=== PATIENT | female | born 1950 | race African-American/Black ===

== ENCOUNTER → 2019-02-19 | Day surgery (SDC) | payer MEDICARE ==
[~2019-02-19] MED LIST: BENZOCAINE ONE 20% MUCOSAL SPRAY.; CETI10CA PO; CLON0.3T PO; DABI150C PO; IV RINGERS,LACTATED 1000ML 1,000 ML IV SCH; LIDOCAINE 2% TOPICAL JELLY 30GM TUBE. TP ONE; LIDOCAINE 2% VISCOUS 15 ML SOLUTION. ONE; LISI10TA2 PO; PANT20TA2 PO; PREG150C PO; PROPOFOL 50 ML IV ONE; ZOLP10TA PO
[2019-02-19 16:50] VITALS: BP 185/92
--- NOTE | 2019-02-19 17:31 | CARD ---
MR#: [id number] Date of Study: 02/19/2019 Ordering Physician: ANA ELLIOTT, Referring Physician: ANA ELLIOTT Tech: Bella Perez RDCS APPROVED REPORT EXAM: Transesophageal echocardiogram with color flow Doppler. INDICATION Atrial Fibrillation Reason For Test : Rule out cardiac source of emboli. PROCEDURE After obtaining informed consent, patient underwent transesophageal echo in the PACU. Type of Sedation : General Anesthesia Sedation was administered by Antwon Javier CRNA. Sedation was achieved with Propofol 180 mg intravenously. Transesophageal probe was inserted and advanced into esophagus by Ana Elliott MD. The MATTEO was performed without complications. Throughout the procedure, the blood pressure, pulse oximetry, cardiac rhythm, and rate were monitored . The patient tolerated the procedure without adverse effects. Recovery from general anesthesia was une ventful and vital signs were stable. LEFT VENTRICLE The left ventricle is normal size. The left ventricular systolic function is normal and the ejection fraction is within normal range. The Ejection Fraction is 55-60%. There is normal LV segmental wall m otion. No left ventricle thrombus noted on this study. RIGHT VENTRICLE The right ventricle is normal size. There is normal right ventricular wall thickness. The right ventr icular systolic function is normal. ATRIA The left atrium size is normal. The right atrium size is normal. The interatrial septum is intact wit h no evidence for an atrial septal defect or patent foramen ovale as noted on 2-D or Doppler imaging. There is no thrombus noted in the left atrial appendage. AORTIC VALVE The aortic valve is calcified but opens well. Doppler and Color Flow revealed trace to mild aortic re gurgitation. There is no significant aortic valvular stenosis. MITRAL VALVE The mitral valve is calcified but opens well. There is no evidence of mitral valve prolapse. There is no mitral valve stenosis. Doppler and Color-flow revealed mild mitral regurgitation. TRICUSPID VALVE The tricuspid valve is normal in structure and function. Doppler and Color Flow revealed mild tricusp id regurgitation. There is no tricuspid valve stenosis. PULMONIC VALVE The pulmonary valve is normal in structure and function. Doppler and Color Flow revealed trace pulmon ic valvular regurgitation. There is no pulmonic valvular stenosis. GREAT VESSELS The aortic root is normal in size. The ascending aorta is mildly dilated at 3.4 cm. The IVC is normal in size and collapses >50% with inspiration. Critical Notification Critical Value: No <Conclusion> The left ventricular systolic function is normal and the ejection fraction is within normal range. Th e Ejection Fraction is 55-60%. There is normal LV segmental wall motion. There is no thrombus noted in the left atrial appendage. Signed by : Ana Elliott, Electronically Approved : 02/19/2019 17:30:19
== END ==
LOC: SURG 14:04
PROVIDERS: ATTEND Internal Medicine Cardiovascular Disease
DX: I48.91 Unspecified atrial fibrillation (principal); I08.3 Combined rheumatic disorders of mitral, aortic and tricuspid valves
CPT/HCPCS: 93312; 93320; 93325; J2704

== ENCOUNTER → 2020-04-08 | Outpatient (CLI) | payer OTHER, MEDICAID ==
[2019-02-19 16:50] VITALS: BP 185/92
[~2020-04-08] MED LIST changes: -BENZOCAINE ONE 20% MUCOSAL SPRAY.; -IV RINGERS,LACTATED 1000ML 1,000 ML IV SCH; -LIDOCAINE 2% TOPICAL JELLY 30GM TUBE. TP ONE; -LIDOCAINE 2% VISCOUS 15 ML SOLUTION. ONE; -PROPOFOL 50 ML IV ONE
--- NOTE | 2020-04-08 16:06 | CARD ---
MR#: [id number] Date of Study: 04/08/2020 Ordering Physician: LOY ESPITIA, Referring Physician: LOY ESPITIA, Tech: Jacquie Grullon APPROVED REPORT EXAM: Two-dimensional and M-mode echocardiogram with Doppler and color Doppler. Other Information Quality : AverageHR: 55bpm INDICATION Atrial Fibrillation RISK FACTORS Hypertension 2D DIMENSIONS RVDd3.3 (2.9-3.5cm)Left Atrium(2D)3.9 (1.6-4.0cm) IVSd1.0 (0.7-1.1cm)Aortic Root(2D)3.0 (2.0-3.7cm) LVDd4.8 (3.9-5.9cm)LVOT Diameter2.0 (1.8-2.4cm) PWd0.9 (0.7-1.1cm)LVDs2.8 (2.5-4.0cm) FS (%) 43.1 %SV81.0 ml LVEF(%)74.1 (>50%) Aortic Valve AoV Peak Max.146.0cm/sAoV VTI34.3cm AO Peak GR.8.5mmHgLVOT Peak Max.102.6cm/s AO Mean GR.5mmHgAVA (VMAX)2.31cm2 Mitral Valve MV E Pmahuael43.2cm/sMV E Peak Gr.4mmHg MV DECEL [id number] A Xaewwjzp21.5cm/s MV E Mean Gr.1mmHgE/A Ratio1.4 Pulmonary Valve PV Peak Upiyggtq44.0cm/s Tricuspid Valve TR P. Ljkjpcmk803ji/sRAP KAARZAPZ9alKu TR Peak Gr.31ymYuBYDI88qpHs Pulmonary Vein S1 Ebosrqry63.8cm/sD2 Ecmnbaxh60.3cm/s PVa ostfhtga806pcjk LEFT VENTRICLE The left ventricle is normal size. There is normal left ventricular wall thickness. The left ventricu lar systolic function is normal and the ejection fraction is within normal range. The Ejection Fracti on is 50-55%. There is normal LV segmental wall motion. Transmitral Doppler flow pattern is Grade II- pseudonormal filling dynamics. RIGHT VENTRICLE The right ventricle is normal size. There is normal right ventricular wall thickness. The right ventr icular systolic function is normal. ATRIA The left atrium size is normal. The right atrium size is normal. The interatrial septum is intact wit h no evidence for an atrial septal defect or patent foramen ovale as noted on 2-D or Doppler imaging. AORTIC VALVE The aortic valve is calcified but opens well. Doppler and Color Flow revealed no significant aortic r egurgitation. There is no significant aortic valvular stenosis. Calculated aortic valve area is 2.5 c m2 with maximum pressure gradient of 9 mmHg and mean pressure gradient of 5 mmHg. MITRAL VALVE The mitral valve is normal in structure and function. There is no evidence of mitral valve prolapse. There is no mitral valve stenosis. Doppler and Color-flow revealed trace mitral regurgitation. TRICUSPID VALVE The tricuspid valve is normal in structure and function. Doppler and Color Flow revealed trace tricus pid regurgitation with an estimated PAP of 45 mmHg. There is no tricuspid valve stenosis. PULMONIC VALVE The pulmonic valve is not well visualized. Doppler and Color Flow revealed trace pulmonic valvular re gurgitation. There is no pulmonic valvular stenosis. GREAT VESSELS The aortic root is normal in size. The ascending aorta is borderline dilated. The IVC is normal in si ze and collapses >50% with inspiration. PERICARDIAL EFFUSION There is no evidence of significant pericardial effusion. Critical Notification Critical Value: No <Conclusion> The left ventricular systolic function is normal and the ejection fraction is within normal range. Th e Ejection Fraction is 50-55%. There is normal LV segmental wall motion. Signed by : Loy Espitia, Electronically Approved : 04/08/2020 16:05:47
== END | disposition home or self-care (01) ==
LOC: ECHO 11:19
PROVIDERS: ATTEND Internal Medicine Cardiovascular Disease
DX: I35.1 Nonrheumatic aortic (valve) insufficiency (principal); I48.91 Unspecified atrial fibrillation
CPT/HCPCS: 93306

== ENCOUNTER → 2021-09-15 | Outpatient (CLI) | payer OTHER ==
[2019-02-19 16:50] VITALS: BP 185/92
[~2021-09-15] MED LIST changes: +LISI10TA16 PO; -LISI10TA2 PO; +REGADENOSON 0.4 MG/5 ML DISP.SYRIN. IV ONE
--- NOTE | 2021-09-15 15:29 | RAD ---
MR#: [id number] Date of Study: 09/15/2021 Ordering Physician: ANA ESPITIA, Referring Physician: ALFRED SALCEDO Tech: RAJIV Sherman APPROVED REPORT Test Type: Pharmacological Stress Nurse/Tech: Es Manzano RN Test Indications: A-fib Cardiac History: Hypertension Medications: See Electronic Medical Record Medical History: See Electronic Medical Record Resting ECG: SR Resting Heart Rate: 61 bpm Resting Blood Pressure: 128/60mmHg Pretest Chest Pain: No chest pain Nurse/Tech Notes S1,S2 and lungs slightly diminished in the bases. Consent: The procedure was explained to the patient in lay terms. Informed consent was witnessed. Noel eout was entered into [employer]. History and Stress Test performed by RT Nicolás (Minerv[employer]) (N) Pharm. Details Pharmacologic stress testing was performed using 0.4mg per 5ml of regadenoson given intravenously ove r 7-10 seconds. Stress Symptoms Dyspnea POST EXERCISE Reason for Termination: Infusion complete Target HR: No Max HR: 109 bpm 85% of Maximum Predicted HR: 127 bpm Max Blood Pressure: 160/76mmHg Blood Pressure response to exercise: Normal blood pressure response during stress. Heart Rate response to exercise: WNL Chest Pain: No. Arrhythmia: No. ST Change: No. INTERPRETATION Stress EKG Conclusion: No evidence of stress induced EKG changes. Imaging Protocol IMAGE PROTOCOL: Rest Tc-99m/stress Tc-99m 1 day Rest: Stress: Viability: Radiopharm.Tc99m CvnbhbbqoRm15e Sestamibi Lthj89vGj 30mCi Duration 15min. 13min. Img Date 09/15/2021 09/15/2021 Inj-Img Rans94ckh. 60min. Rest Admin Site:IV - Right WristAdministrator:RAJIV Sherman Stress Admin Site: IV - Right WristAdministrator: RT Nicolás (R)(N) STRESS DATA End Diast. Vol.65.0mlLVEDV index BSA31.0ml End Syst. Vol.10.0mlLVESV index BSA5.0ml Myocardial Spfe008.0gEject. Uebyceqv32.0% Stress Scores Regional WT1.00Summed WT7.00 Regional WM0.00Summed WM2.00 The rest and stress images show normal perfusion, normal contraction and thickening. LV Perf. Quant 17 Seg. SSS0.00 17 Seg. SRS0.00 17 Seg. SDS0.00 Stress Defect Extent (% LAD)0.00Rest Defect Extent (% LAD)0.00Rev. Defect Extent (% LAD)0.00 Stress Defect Extent (% LCX) 0.00Rest Defect Extent (% LCX)0.00Rev. Defect Extent (% LCX)0.00 Stress Defect Extent (% RCA)0.00Rest Defect Extent (% RCA)0.00Rev. Defect Extent (% RCA)0.00 Stress Defect Extent (% YANELIS)0.00Rest Defect Extent (% YANELIS)0.00Rev. Defect Extent (% YANELIS)0.00 Other Information Quality:Good Risk Assessment: Low Risk Conclusion 1. No evidence of EKG changes with stress testing. 2. Normal perfusion at stress/rest. 3. Low risk study. 4. EF > 60%. Signed by : Ana Espitia, Electronically Approved : 09/15/2021 15:29:26
== END ==
LOC: NM 08:04
PROVIDERS: ATTEND Internal Medicine Cardiovascular Disease
DX: I48.91 Unspecified atrial fibrillation (principal)
CPT/HCPCS: 78452; 93017; A9500; J2785